=== PATIENT | female | born 1960 | race Caucasian/White ===

== ENCOUNTER → 2019-12-27 10:04 | Outpatient (CLI) | payer OTHER, SELFPAY ==
--- NOTE | 2019-12-27 10:05 | DI.RAD.S_ITS ---
PROCEDURE: XR CERVICAL SPINE 4V OR 5V INDICATIONS: neck pain TECHNIQUE: 5 total views of the cervical spine were acquired, including bilateral oblique views. COMPARISON: [facility], AMBER, MRI C-SPINE W/O CONTRAST, 12/09/2019, 15:50. [facility], RG, CT C-SPINE WO CONTRAST, 08/09/2019, 19:50. FINDINGS: Bones: No fractures or dislocations to the T2 level. Oblique images demonstrate no significant bony foraminal stenoses. There is moderate disc space narrowing seen at C4-C5, C5-C6, and C7-T1, with moderate to severe disc space narrowing at C6 C7. Interval irregularity and sclerosis are seen, which are most prominent at C6-C7. Soft tissues: No prevertebral soft tissue swelling. The visualized lung apices are unremarkable. IMPRESSION: Cervical spine degenerative changes are seen, which are most prominent at the C6-C7 level. Reversal of the normal cervical lordosis is seen. This is commonly observed in patients with muscular spasm. Dictated by: Roshan Olguin M.D. on 12/27/2019 at 9:36 Approved by: Roshan Olguin M.D. on 12/27/2019 at 9:37
== END ==
PROVIDERS: PCP Family Medicine; Referring Provider Physical Medicine & Rehabilitation; Visit Provider Physical Medicine & Rehabilitation
DX: M54.2 Cervicalgia (principal); M47.22 Other spondylosis with radiculopathy, cervical region; M50.20 Other cervical disc displacement, unspecified cervical region
CPT/HCPCS: 72050; 99214

== ENCOUNTER → 2022-09-18 18:56 | Outpatient (CLI) | payer OTHER, SELFPAY ==
[2022-09-18 20:50] LABS: Influenza A - CEPHEID Flu A NEGATIVE (NEGATIVE); Influenza B - CEPHEID Flu B NEGATIVE (NEGATIVE); Respiratory Syncytial Virus Negative (Negative)
[2022-09-18 21:22] LABS: COVID-19 CEPHEID 4-PLEX PCR POSITIVE (Negative)
== END ==
PROVIDERS: PCP Family Medicine; Visit Provider Nurse Practitioner Family
DX: R05.1 Acute cough (principal)
CPT/HCPCS: 0241U